=== PATIENT | female | born 1935 | race Caucasian/White ===

== ENCOUNTER → 2017-12-23 | Outpatient (CLI) | payer MEDICARE ==
[~2017-12-23] MED LIST: AMLODIPINE BESYL5 MG PO; KEFLEX500 MG PO; LEVOTHYROXINE100 MCG; LITHIUM8 MEQ/5 ML
--- NOTE | 2017-12-24 14:37 | Diagnostic Imaging Report ---
EXAMINATION: MRI of the lumbar spine without contrast HISTORY: Chronic low back pain radiating to lower extremities. COMPARISON: Lumbar spine x-ray on 02/28/2017. TECHNIQUE: Sagittal T1, T2, STIR; axial T2 and proton density. FINDINGS: It is assumed that there are 5 lumbar vertebrae. Curvature/Alignment: Normal lordosis. Vertebrae: No evidence of recent fracture, infection, or neoplasm. Well defined approximately 5 mm hypodense focus in the S1 vertebral body, likely corresponds to a bone island. Benign hemangioma is seen in the T11 and T12 vertebral bodies. 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 Paraspinal soft tissues: Partially visualized and not completely characterized heterogeneous signal intensity foci in both kidneys, probably cysts, some of them perhaps hemorrhagic, a renal ultrasound is recommended for further evaluation. Degenerative changes: L1-L2: Unremarkable. L2-L3: Unremarkable. L3-L4: Mild symmetric disc bulge, ligamenta flava thickening and facet arthrosis. Mild canal and foraminal narrowing. L4-L5: Advanced facet arthrosis results in grade 1 degenerative spondylolisthesis. Symmetric disc bulge, ligamenta flava thickening and facet processes. Severe spinal canal and moderate right foraminal stenoses. Mild bilateral facet joint effusion and bone marrow edema, likely degenerative synovitis. L5-S1: Minimal symmetric disc bulge and bilateral facet arthrosis. No stenoses IMPRESSION: 1. Grade 1 degenerative spondylolisthesis at L4-L5 is unchanged from lumbar spine x-ray dated 02/28/2017. 2. Severe degenerative spinal canal and moderate right foraminal stenosis at L4-L5 with circumferential narrowing of the thecal sac/cauda equina nerve roots. 3. Mild degenerative canal and foraminal narrowing at L3-4. 4. Partially visualized multiple heterogeneous signal intensity foci in the kidneys, a renal ultrasound is recommended if not previously evaluated. Signed by: Dr. Mckenzie Joseph M.D. on 12/24/2017 2:34 PM
== END ==
LOC: MRI 07:33
PROVIDERS: ATTEND Family Medicine
DX: M47.26 Other spondylosis with radiculopathy, lumbar region (principal)
CPT/HCPCS: 72148

== ENCOUNTER → 2018-01-04 | Outpatient (CLI) | payer MEDICARE ==
--- NOTE | 2018-01-04 11:24 | Diagnostic Imaging Report ---
PROCEDURE:US RETROPERITONEAL ( KIDNEY ). COMPARISON:None. INDICATIONS:RENAL CYSTS TECHNIQUE: Ramirez-scale and color sonographic images of the bilateral kidneys and bladder where obtained in transverse and longitudinal planes. FINDINGS: RIGHT KIDNEY: 9.7 cm, cortex 1.1 cm Cysts: Multiple right sided simple renal cysts are present: measuring up to 1.8 cm in the inferior pole medially; 1.2 cm in the inferior pole medially; and 0.8 cm in the mid pole laterally. Solid masses: A 1.3 cm heterogeneous hyperechoic lesion is present in the right mid pole kidney laterally. Hydronephrosis: None. Echogenicity: Coarse echogenic appearance with multiple punctate calcifications LEFT KIDNEY: 10.1 cm, cortex 1 cm Cysts: Simple left sided renal cyst measuring up to 1.1 cm in the inferior pole laterally. Solid masses: None. Hydronephrosis: None. Echogenicity: Coarse echogenic appearance with multiple punctate calcifications Bladder: Unremarkable. Bilateral ureteral jets are visualized. CONCLUSION: Solid 1.3 cm heterogeneously hyperechoic lesion in the right mid pole kidney is indeterminate. While an AML is possible, an RCC is also on the differential, and renal protocol CT is recommended for further evaluation. Coarse echogenic kidneys bilaterally, which may represent medical renal disease. Punctate calcifications throughout bilateral kidneys may represent parenchymal calcifications and potentially stones. Bilateral simple appearing renal cysts. Dictated by: GANGA SONG M.D. on 01/04/2018 at 11:19 Electronically approved by: GANGA SONG M.D. on 01/04/2018 at 11:19
== END ==
LOC: US 08:44
PROVIDERS: ATTEND Family Medicine
DX: N28.1 Cyst of kidney, acquired (principal)
CPT/HCPCS: 76770

== ENCOUNTER → 2018-01-09 | Outpatient (CLI) | payer MEDICARE ==
[~2018-01-09] MED LIST changes: +IOPAMIDOL 370 MG/ML 200 ML INFUS..BTL INJ ONE; +SODIUM CHLORIDE 0.9% 250ML 500 ML ONE; +SODIUM CHLORIDE 0.9% 50ML 50 ML ONE
[2018-01-09 12:31] LABS: CREATININE, SERUM 1.21 mg/dL (0.57-1.11)
--- NOTE | 2018-01-09 14:35 | Diagnostic Imaging Report ---
EXAM: CT Abdomen WITHOUT and WITH contrast INDICATION: \[id number] \S\1300 \S\RENAL MASS COMPARISON: Renal ultrasound dated 01/04/2018 TECHNIQUE: Abdomen was scanned utilizing a multidetector helical scanner from the lung base to the iliac crest before and after administration of IV contrast. Coronal and sagittal reformations were obtained. Routine protocol was performed. Scan was performed when during portal venous phase. IV CONTRAST: 150 mL of Omnipaque 300 ORAL CONTRAST: Water COMPLICATIONS: None RADIATION DOSE: Total DLP: ... mGy*cm Estimated effective dose: (DLP x 0.015 x size factor) mSv CTDIvol has been reviewed. It is below the limits set by the Radiation Protocol Committee (RPC). FINDINGS: LINES and TUBES: None. LOWER THORAX: Unremarkable HEPATOBILIARY: No hepatic mass. 1.1 cm left hepatic lobe cyst (series 7, image 26). Right upper lobe subcentimeter hypodensity (series 7, image 46) is too small to characterize. No biliary ductal dilation. GALLBLADDER: Small calcified gallstone. No wall thickening. SPLEEN: No splenomegaly. PANCREAS: No focal masses or ductal dilatation. ADRENALS: 1.1 cm left adrenal nodule with internal density of -3 Hounsfield units on precontrast images, representing an adenoma. No right adrenal nodule. KIDNEYS/URETERS: Kidneys enhance symmetrically. No hydronephrosis. No stones. Punctate bilateral cortical calcifications are seen. Numerous bilateral subcentimeter hypodensities which are too small to characterize but are statistically cysts. There is a hyperdense posterior left superior pole lesion on precontrast images, measuring 0.9 cm (series 3, image 40) which cannot be characterized with certainty due to size and indistinct visualization on postcontrast images. 1.5 cm left renal inferior pole cyst (series 4, image 41). There are also exophytic cysts, extending from anterior right renal inferior pole measuring 1.7 and 0.9 cm (series 7, image 78). 1 cm right midpole fat-containing lesion (series 3, image 57). Another posterior right inferior pole tiny fat-containing lesion (series 3, image 69). GI TRACT: Visualized bowel loops are unremarkable. No evidence of bowel obstruction. Partially visualized diverticulosis without evidence of diverticulitis in the visualized portion. LYMPH NODES: No lymphadenopathy. Nonspecific subcentimeter retroperitoneal lymph nodes. VESSELS: Moderate atherosclerotic disease of tortuous abdominal aorta. PERITONEUM / RETROPERITONEUM: No free air or fluid. BONES: Sacral sclerotic focus (series 7, image 114), likely a bone island. Indeterminate right posterior L2 vertebral body lucency (series 7, image 68). T12 and T11 vertebral body hemangiomas. Grade 1 retrolisthesis of L5 in relation to L4. SOFT TISSUES: Unremarkable. IMPRESSION: 1. Innumerable bilateral renal hypodensities which are too small to characterize, however statistically are most likely cysts. 2. Few larger lesions as described above, without evidence of enhancement, representing cysts. 3. 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 4. Cholelithiasis without evidence of cholecystitis. 5. 1.1 cm left adrenal adenoma. Signed by: Dr. Jaziel De La Rosa MD on 01/09/2018 2:32 PM
== END ==
LOC: CT 11:42
PROVIDERS: ATTEND Family Medicine
DX: N28.89 Other specified disorders of kidney and ureter (principal)
CPT/HCPCS: 36415; 74170; 82565; 84520; J7050; Q9967

== ENCOUNTER 2020-04-18 13:37 | Emergency (ER) | payer OTHER, MEDICARE ==
[~2020-04-18] VITALS: Ht 157.5 cm; Wt 63.5 kg
[~2020-04-18 13:37] MED LIST changes: -IOPAMIDOL 370 MG/ML 200 ML INFUS..BTL INJ ONE; -SODIUM CHLORIDE 0.9% 250ML 500 ML ONE; -SODIUM CHLORIDE 0.9% 50ML 50 ML ONE
--- OUTSIDE RECORDS SUMMARY | 2020-04-18 14:21 | XMS REPORT | Continuity of Care Document ---
Author Author [facility] Organization [facility] Address [address] [place] [address] Phone Unavailable Care Team Providers Care Carriage Rider Name Role Phone DOC ARITA Unavailable Problems This patient has no known problems. Allergies, Adverse Reactions, Alerts This patient has no known allergies or adverse reactions. Medications This patient has no known medications. Procedures This patient has no known procedures. Results Test Description Test Time Test Comments Results Result Comments Source SCR MAMM BILATERAL TIFFANIE CAD DIGITAL 2019-10-29 10:32:43 - SCR MAMM BILATERAL TIFFANIE CAD DIGITALBILATERAL DIGITAL SCREENING MAMMOGRAM 3D/2D WITH CAD: 10/26/2019CLINICAL: Asymptomatic. Digital breast tomosynthesis was performed in addition to routine CC and MLO views. Current mammographic images were evaluated by either a [employer] [facility] M-Vu or a [employer] ImageChecker CAD (computer aided detection system). Comparison is made to exams dated 10/24/2018 mammogram, 10/07 mammogram, and 09/28/2016 mammogram - [facility]. The tissue of both breasts is extremely dense, which lowers the sensitivity of mammography. There are benign vascular calcifications in both breasts. No suspicious mass, architectural distortion, malignant type calcification, or lymph node abnormality detected. Breast architecture is stable compared to prior exams.IMPRESSION: BENIGNThere is no mammographic evidence of malignancy. Resume annual screening mammography in one year. Kayleen Mccormack M.D. dm/penrad:10/29/2019 10:32:43 Promotion Specialist: Bina NUGENT, [facility] sent: BIRADS 1-2 Normal Mammogram BI-RADS: 2 Benign SCR MAMM BILATERAL TIFFANIE CAD DIGITAL 2018-10-24 12:13:36 - SCR MAMM BILATERAL TIFFANIE CAD DIGITALBILATERAL DIGITAL SCREENING MAMMOGRAM 3D/2D WITH CAD: 10/24/2018CLINICAL: Asymptomatic. Digital breast tomosynthesis was performed in addition to routine CC and MLO views. Current mammographic images were evaluated by either a [employer] [facility] M-Vu or a [employer] ImageChecker CAD (computer aided detection system). Comparison is made to exams dated 10/07/2017 mammogram, 09/28 mammogram, and 08/26/2015 mammogram - [facility] The tissue of both breasts is extremely dense, which lowers the sensitivity of mammography. There are benign vascular calcifications in both breasts. No suspicious mass, architectural distortion, malignant type calcification, or lymph node abnormality detected. Breast architecture is stable compared to prior exams.IMPRESSION: BENIGNThere is no mammographic evidence of malignancy. Resume annual screening mammography in one year. Kayleen Mccormack M.D. dm/penrad:10/24/2018 12:13:36 Promotion Specialist: Merry NUGENT, [facility] sent: BIRADS 1-2 Normal Mammogram BI-RADS: [address] ABDOMEN WOW 2018-01-09 13:31:00 [place] [address] Patient Name: NEELA CROW MR #: [id number] : 1935 Age/Sex: 83/F Req #: [id number] [facility] Physician: Ordered by: DOC ARITA MD Report #: [id number] Location: CT Room/Bed: Procedure: [id number] CT/CT ABDOMEN WOW Exam Date: 01/09/18 Exam Time: 1300 REPORT STATUS: Signed EXAM: CT Abdomen WITHOUT and WITH contrast INDICATION: COMPARISON: Renal ultrasound dated 01/04/2018 TECHNIQUE: Abdomen was scanned utilizing a multidetector helical scanner from the lung base to the iliac crest before and after administration of IV contrast. Coronal and sagittal reformations were obtained. Routine protocol was performed. Scan was performed when during portal venous phase. IV CONTRAST: 150 mL of Omnipaque 300 ORAL CONTRAST: Water COMPLICATIONS: None RADIATION DOSE: Total DLP: ... mGy*cm Estimated effective dose: (DLP x 0.015 x size factor) mSv CTDIvol has been reviewed. It is below the limits set by the Radiation Protocol Committee (RPC). FINDINGS: LINES and TUBES: None. LOWER THORAX: Unremarkable HEPATOBILIARY: No hepatic mass. 1.1 cm left hepatic lobe cyst (series 7, image 26). Right upper lobe subcentimeter hypodensity (series 7, image 46) is too small to characterize. No biliary ductal dilation. GALLBLADDER: Small calcified gallstone. No wall thickening. SPLEEN: No splenomegaly. PANCREAS: No focal masses or ductal dilatation. ADRENALS: 1.1 cm left adrenal nodule with internal density of -3 Hounsfield units on precontrast images, representing an adenoma. No right adrenal nodule. KIDNEYS/URETERS: Kidneys enhance symmetrically. No hydronephrosis. No sto mimi. Punctate bilateral cortical calcifications are seen. Numerous bilateral subcentimeter hypodensities which are too small to characterize but are statistically cysts. There is a hyperdense posterior left superior pole lesion on precontrast images, measuring 0.9 cm (series 3, image 40) which cannot be characterized with certainty due to size and indistinct visualization on postcontrast images. 1.5 cm left renal inferior pole cyst (series 4, image 41). There are also exophytic cysts, extending from anterior right renal inferior pole measuring 1.7 and 0.9 cm (series 7, image 78). 1 cm right midpole fat-containing lesion (series 3, image 57). Another posterior right inferior pole tiny fat-containing lesion (series 3, image 69). GI TRACT: Visualized bowel loops are unremarkable. No evidence of bowel obstruction. Partially visualized diverticulosis without evidence of diverticulitis in the visualized portion. LYMPH NODES: No lymphadenopathy. Nonspecific subcentimeter retroperitoneal lymph nodes. VESSELS: Moderate atherosclerotic disease of tortuous abdominal aorta. PERITONEUM / RETROPERITONEUM: No free air or fluid. BONES: Sacral sclerotic focus (series 7, image 114), likely a bone island. Indeterminate right posterior L2 vertebral body lucency (series 7, image 68). T12 and T11 vertebral body hemangiomas. Grade 1 retrolisthesis of L5 in relation to L4. SOFT TISSUES: Unremarkable. IMPRESSION: 1. Innumerable bilateral renal hypodensities which are too small to characterize, however statistically are most likely cysts. 2. Few larger lesions as described above, without evidence of enhancement, representing cysts. 3. Two fat- containing lesions in the right kidney, representing angiomyolipomas. 4. Cholelithiasis without evidence of cholecystitis. 5. 1.1 cm left adrenal adenoma. Signed by: Dr. Jaziel Kirkpatrick MD on 01/09/2018 2:32 PM Dictated By: JAZIEL KIRKPATRICK MD 143 Transcribed By: HANY on 01/09/18 143 COPY TO: DOC ARIAT MD US RENAL RETROPERITONEAL COMP 2018-01-04 11:19:00 [place] [address] Patient Name: NEELA CROW MR #: [id number] : 1935 Age/Sex: 83/F Req #: [id number] Adm Physician: Ordered by: DOC ARITA MD Report #: [id number] Location: Room/Bed: Procedure: [id number] US/US RENAL RETROPERITONEAL COMP Exam Date: Exam Time: REPORT STATUS: Signed PROCEDURE: US RETROPERITONEAL ( KIDNEY ). COMPARISON: None. INDICATIONS: RENAL CYSTS TECHNIQUE: Ramirez-scale and color sonographic images of the bilateral kidneys and bladder where obtained in transverse and longitudinal planes. FINDINGS: RIGHT KIDNEY: 9.7 cm, cortex 1.1 cm Cysts: Multiple right sided simple renal cysts are present: measuring up to 1.8 cm in the inferior pole medially; 1.2 cm in the inferior pole medially; and 0.8 cm in the mid pole laterally. Solid masses: A 1.3 cm heterogeneous hyperechoic lesion is present in the right mid pole kidney laterally. Hydronephrosis: None. Echogenicity: Coarse echogenic appearance with multiple punctate calcifications LEFT KIDNEY: 10.1 cm, cortex 1 cm Cysts: Simple left sided renal cyst measuring up to 1.1 cm in the inferior pole laterally. Solid masses: None. Hydronephrosis: None. Echogenicity: Coarse echogenic appearance with multiple punctate calcifications Bladder: Unremarkable. Bilateral ureteral jets are visualized. CONCLUSION: Solid 1.3 cm heterogeneously hyperechoic lesion in the right mid pole kidney is indeterminate. While an AML is possible, an RCC is also on the differential, and renal protocol CT is recommended for further evaluation. Coarse echogenic kidneys bilaterally, which may represent medical renal disease. Punctate calcifications throughout bilateral kidneys may represent parenchymal calcifications and potentially stones. Bilateral simple appearing renal cysts. Dictated by: GANGA SONG M.D. on 01/04/2018 at 11:19 Electronically approved by: GANGA SONG M.D. on 01/04/2018 at 11:19 Dictated By: GANGA SONG MD 1119 Transcribed By: MONICA on 01/04/18 1119 COPY TO: DOC ARITA MD MRI SPINE LUMBAR WO 2017-12-24 14:29:00 [place] [address] Patient Name: NEELA CROW MR #: [id number] : 1935 Age/Sex: 82/F Req #: [id number] Adm Physician: Ordered by: DOC ARITA MD Report #: [id number] Location: MRI Room/Bed: Procedure: [id number] MRI/MRI SPINE LUMBAR WO Exam Date: Exam Time: REPORT STATUS: Signed EXAMINATION: MRI of the lumbar spine without contrast HISTORY: Chronic low back pain radiating to lower extremities. COMPARISON: Lumbar spine x-ray on 02/28/2017. TECHNIQUE: Sagittal T1, T2, STIR; axial T2 and proton density. FINDINGS: It is assumed that there are 5 lumbar vertebrae. Curvature/Alignment: Normal lordosis. Vertebrae: No evidence of recent fracture, infection, or neoplasm. Well defined approximately 5 mm hypodense focus in the S1 vertebral body, likely corresponds to a bone island. Benign hemangioma is seen in the T11 and T12 vertebral bodies. 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 Paraspinal soft tissues: Partially visualized and not completely characterized heterogeneous signal intensity foci in both kidneys, probably cysts, some of them perhaps hemorrhagic, a renal ultrasound is recommended for further evaluation. Degenerative changes: L1-L2: Unremarkable. L2-L3: Unremarkable. L3-L4: Mild symmetric disc bulge, ligamenta flava thickening and facet arthrosis. Mild canal and foraminal narrowing. L4-L5: Advanced facet arthrosis results in grade 1 degenerative spondylolisthesis. Symmetric disc bulge, ligamenta flava thickening and facet processes. Severe spinal canal and moderate right foraminal stenoses. Mild bilateral facet joint effusion and bone marrow edema, likely degenerative synovitis. L5-S1: Minimal symmetric disc bulge and bilateral facet arthrosis. No stenoses IMPRESSION: 1. Grade 1 degenerative spondylolisthesis at L4-L5 is unchanged from lumbar spine x-ray dated 02/28/2017. 2. Severe degenerative spinal canal and moderate right foraminal stenosis at L4-L5 with circumferential narrowing of the thecal sac/cauda equina nerve roots. 3. Mild degenerative canal and foraminal narrowing at L3-4. 4. Partially visualized multiple heterogeneous signal intensity foci in the kidneys, a renal ultrasound is recommended if not previously evaluated. Signed by: Dr. Nicolasa Joseph M.D. on 12/24/2017 2:34 PM Dictated By: NICOLASA JOSEPH MD 33 Transcribed By: HANY on 12/24/171433 COPY TO: DOC ARITA MD SP LUMBAR, COMPLETE MIN 4VW [place] [address] Patient Name: NEELA CROW MR #: [id number] : 1935 Age/Sex: 82/F Req #: [id number] [facility] Physician: Ordered by: DOC ARITA MD Report #: [id number] Location: [facility] Room/Bed: Procedure: [id number] DX/SP LUMBAR, COMPLETE MIN 4VW Exam Date: 02/28/17 Exam Time: 1250 REPORT STATUS: Signed PROCEDURE: L-SPINE COMPLETE COMPARISON: None. INDICATIONS: PAIN TO BOTH BUTTOCKS, AND RUNS DOWN BOTH LEGS FINDINGS: There is Grade I anterior listhesis of L4 on L5. No associated pars defect is identified. Facet arthrosis at this level is present. The lumbar spine is in anatomic alignment without evidence of fracture or spondylolysis. Vertebral body heights and disc spaces are maintained. The paraspinal soft tissues are normal. There is diffuse vascular calcification. CONCLUSION: Anterior listhesis of L4 on L5. Ron Jean-Baptiste D.O. Dictated by: Ron Jean-Baptiste D.O. on 02/28/2017 at 14:23 Electronically approved by: Ron Jean-Baptiste D.O. on 02/28/2017 at 14:23 Dictated By: RON JEAN-BAPTISTE DO 22 Transcribed By: MONICA on 02/28/171422 COPY TO: DOC ARITA MD HIPS BILAT TWO VWS(+/- PELVIS) [place] [address] Patient Name: NEELA CROW MR #: [id number] : 1935 Age/Sex: 82/F Req #: [id number] Adm Physician: Ordered by: DOC ARITA MD Report #: [id number] Location: [facility] Room/Bed: Procedure: [id number] DX/HIPS BILAT TWO VWS(+/- PELVIS) Exam Date: Exam Time: REPORT STATUS: Signed PROCEDURE: HIPS BILAT TWO VWS(+/- PELVIS) INDICATION: Pain COMPARISON: None. FINDINGS: There is mild symmetric bilateral joint space narrowing. No fracture or dislocation. Bones are well mineralized. No lytic or blastic process. Pelvic phlebolith is present on the left. CONCLUSION: Mild joint space narrowing. Ron Jean-Baptiste D.O. Dictated by: Ron Jean-Baptiste D.O. on 02/28/2017 at 14:29 Electronically approved by: Ron Jean-Baptiste D.O. on 02/28/2017 at 14:29 Dictated By: RON JEAN-BAPTISTE DO 1429 Transcribed By: MONICA on 02/28/171428 COPY TO: DOC ARITA MD
[2020-04-18 14:23] LABS: BASOPHILS % 0.4 % (0.0-1.0); EOSINOPHILS # (AUTO) 0.3 (0.0-0.4); EOSINOPHILS % 2.3 % (0.0-6.0); HEMATOCRIT 32.2 % (34.2-44.1); HEMOGLOBIN 10.2 g/dL (12.0-16.0); LYMPHOCYTES # (AUTO) 1.7 (1.0-3.2); LYMPHOCYTES % 15.4 % (18.0-39.1); MEAN CORPUSCULAR HEMOGLOBIN 30.5 pg (28-32); MEAN CORPUSCULAR HGB CONC 31.7 g/dL (31-35); MEAN CORPUSCULAR VOLUME 96.4 fL (81-99); MONOCYTES # (AUTO) 1.1 (0.2-0.8); NEUTROPHILS % 71.4 % (38.7-80.0); PLATELET COUNT 307 x10e3/uL (140-360); RED BLOOD COUNT 3.34 x10e6/uL (3.6-5.1)
--- NOTE | 2020-04-18 14:32 | Emergency Department Note ---
History of Present Illnes History of Present Illness Chief Complaint: Extremity Trauma/Pain History of Present Illness This is a 85 year old female Chief Complaint Comment pt came in via POV for c/o pain to the left leg, pt states that she fell on Tuesday and had XRay's done on Tuesday which revealed no fracture, daughter noticed pt's left leg started bruising all the way down to her ankle, denies taking any blood thin ners, pain on weight bearing only, full ROM to LLE. Historian: Patient Arrival Mode: Car Community Relations Representative Required: No Onset (how long ago): day(s) (5) Location: L leg Quality: Bruising Radiation: Reports non-radiation Severity: moderate Onset quality: gradual Duration (how long): day(s) Timing of current episode: constant Progression: worsening Chronicity: new Context: Denies recent illness, Denies recent surgery Relieving factors: none Exacerbating factors: none Associated symptoms: Reports denies other symptoms Treatments prior to arrival: none Past Medical/Family History Physician Review I have reviewed the patient's past medical and family history. Any updates have been documented here. Past Medical History Recent Fever: No Clinical Suspicion of Infectio: No New/Unexplained Change in Ment: No Past Medical History: Hypertension, Diabetes Other Surgery: Tumor removed from breast Other Last Tetanus: Not up date Any Pre-Existing Lines (PICC,: No Review of Systems Review of Systems Constitutional: Reports no symptoms EENTM: Reports no symptoms Cardiovascular: Reports no symptoms Respiratory: Reports no symptoms Gastrointestinal: Reports no symptoms Genitourinary: Reports no symptoms Musculoskeletal: Reports as per HPI Integumentary: Reports no symptoms Neurological: Reports no symptoms Psychological: Reports no symptoms Endocrine: Reports no symptoms Hematological/Lymphatic: Reports no symptoms Physical Exam Related Data Allergies: Coded Allergies: Penicillins (Verified Allergy, Mild, RASH, 03/25/15) hydrochlorothiazide (Verified Allergy, Mild, 03/25/15) lisinopril (Verified Allergy, Mild, COUGH, 03/25/15) losartan (Verified Allergy, Mild, 03/25/15) nickel (Verified Allergy, Mild, RASH, 07/01/10) azithromycin (Verified Allergy, Unknown, 04/18/20) gemfibrozil (Verified Allergy, Unknown, 04/18/20) Triage Vital Signs Vital Signs Date Time Temp Pulse Resp B/P (MAP) Pulse Ox O2 Delivery O2 Flow Rate FiO2 04/18/20 13:46 98.3 90 20 142/72 98 Room Air Vital signs reviewed: Yes Physical Exam CONSTITUTIONAL Constitutional: Present well-developed, Present well-nourished HENT HENT: Present normocephalic, Present atraumatic, Present oropharynx clear/moist, Present nose normal HENT L/R: Present left ext ear normal, Present right ext ear normal EYES Eyes: Reports PERRL, Reports conjunctivae normal NECK Neck: Present ROM normal PULMONARY Pulmonary: Present effort normal, Present breath sounds normal CARDIOVASCULAR Cardiovascular: Present regular rhythm, Present heart sounds normal, Present capillary refill normal, Present normal rate GASTROINTESTINAL Abdominal: Present soft, Present nontender, Present bowel sounds normal GENITOURINARY Genitourinary: Present exam deferred SKIN Skin: Present warm, Present dry MUSCULOSKELETAL Musculoskeletal: Present ROM normal, Present other (Extensive bruising to L leg along posterior aspect) NEUROLOGICAL Neurological: Present alert, Present oriented x 3, Present no gross motor or sensory deficits PSYCHOLOGICAL Psychological: Present mood/affect normal, Present judgement normal Results Laboratory Result Diagram: 04/18/20 1357 Laboratory Laboratory Tests Test 04/18/20 13:57 White Blood Count 11.25 x10e3/uL (4.8-10.8) Red Blood Count 3.34 x10e6/uL (3.6-5.1) Hemoglobin 10.2 g/dL (12.0-16.0) Hematocrit 32.2 % (34.2-44.1) Mean Corpuscular Volume 96.4 fL (81-99) Mean Corpuscular Hemoglobin 30.5 pg (28-32) Mean Corpuscular Hemoglobin Concent 31.7 g/dL (31-35) Red Cell Distribution Width 13.0 % (11.7-14.4) Platelet Count 307 x10e3/uL (140-360) Neutrophils (%) (Auto) 71.4 % (38.7-80.0) Lymphocytes (%) (Auto) 15.4 % (18.0-39.1) Monocytes (%) (Auto) 10.0 % (4.4-11.3) Eosinophils (%) (Auto) 2.3 % (0.0-6.0) Basophils (%) (Auto) 0.4 % (0.0-1.0) Neutrophils # (Auto) 8.0 (2.1-6.9) Lymphocytes # (Auto) 1.7 (1.0-3.2) Monocytes # (Auto) 1.1 (0.2-0.8) Eosinophils # (Auto) 0.3 (0.0-0.4) Basophils # (Auto) 0.0 (0.0-0.1) Absolute Immature Granulocyte (auto 0.06 x10e3/uL (0-0.1) Lab results reviewed: Yes Imaging Imaging results reviewed: Yes Assessment & Plan Medical Decision Making MDM 85-year-old female presents for bruising to the left leg after a fall 5 days ago. Examination shows extensive bruising on the posterior aspect of the leg with some mild lower extremity swelling. We'll order DVT ultrasound and coagulation studies. DVT US neg. Diagnosis favors dependent bruising. Doubt emergent process at this time. I discussed results patient as well as expected disease time course and management. They will follow up with their primary care provider or return to the emergency department for new or worsening symptoms. Patient's appropriate for discharge. Assessment & Plan Final Impression: (1) Contusion, multiple sites Depart Disposition: HOME, SELF-CARE Last Vital Signs Date Time Temp Pulse Resp B/P (MAP) Pulse Ox O2 Delivery O2 Flow Rate FiO2 04/18/20 13:46 98.3 90 20 142/72 98 Room Air Home Meds Reported Medications Cephalexin Monohydrate (KEFLEX) 500 Mg Capsule, 500 MG PO TID 03/25/15 Amlodipine Besylate (AMLODIPINE BESYLATE) 5 Mg Tablet, 5 MG PO DAILY, #30 TAB 03/18/14 Levothyroxine Sodium (LEVOTHYROXINE SODIUM) 100 Mcg Tablet 03/18/14 Iyanbito Citrate (LITHIUM) 8 Meq/5 Ml Solution, 300 MG PRN for DRY EYE, #1 03/18/14 EDDIE NORMAN MD Apr 18, 2020 14:32
[2020-04-18 14:36] LABS: INR 0.94
[2020-04-18 14:37] LABS: PARTIAL THROMBOPLASTIN TIME 23.9 seconds (23.8-35.5)
[2020-04-18 14:43] LABS: ALBUMIN 3.7 g/dL (3.5-5.0); ALBUMIN/GLOBULIN RATIO 1.2 (0.8-2.0); ANION GAP 16.4 mmol/L (8-16); CALCIUM 9.2 mg/dL (8.4-10.2); CREATININE, SERUM 1.37 mg/dL (0.57-1.11); POTASSIUM 4.4 mmol/L (3.5-5.1)
[2020-04-18 17:05] VITALS: BP 117/68
== END 2020-04-18 17:12 | disposition home or self-care (01) ==
LOC: ER 13:50
DX: M79.89 Other specified soft tissue disorders (principal); S80.12XD Contusion of left lower leg, subsequent encounter; I10 Essential (primary) hypertension; E11.9 Type 2 diabetes mellitus without complications
CPT/HCPCS: 36415; 80053; 85025; 85610; 85730; 93971; 99284

== ENCOUNTER → 2020-05-22 | Outpatient (RCR) | payer MEDICARE | LOC: PT 05-02 09:53 | PROVIDERS: ATTEND Internal Medicine | DX: R29.6 Repeated falls (principal) ==

== ENCOUNTER 2020-05-30 09:52 | Outpatient (RCR) | payer MEDICARE | END 2020-06-22 | LOC: PT 09:52 | PROVIDERS: ATTEND Internal Medicine | DX: R26.2 Difficulty in walking, not elsewhere classified (principal); M62.81 Muscle weakness (generalized); Z91.81 History of falling | CPT/HCPCS: 97139 ==

== ENCOUNTER 2021-05-30 20:21 | Inpatient (IN) | payer MEDICARE ==
[~2021-05-30] VITALS: Ht 157.5 cm; Wt 63.5 kg
[2021-05-30] MEDS ORDERED: ACETAMINOPHEN 325 MG TAB PO ONE (20:30)
[2021-05-30] MEDS ORDERED: CEFTRIAXONE 2 GM in SODIUM CHLORIDE 0.9% 100 ML IV ONE (20:30)
[2021-05-30] MEDS ORDERED: SODIUM CHLORIDE 0.9% 1000ML 1,000 ML IV ONE (20:30)
[2021-05-30 20:45] LABS: BASOPHILS % 0.4 % (0.0-1.0); EOSINOPHILS # (AUTO) 0.1 (0.0-0.4); EOSINOPHILS % 0.9 % (0.0-6.0); HEMATOCRIT 40.3 % (34.2-44.1); HEMOGLOBIN 12.5 g/dL (12.0-16.0); LYMPHOCYTES # (AUTO) 0.6 (1.0-3.2); LYMPHOCYTES % 5.7 % (18.0-39.1); MEAN CORPUSCULAR HEMOGLOBIN 31.1 pg (28-32); MEAN CORPUSCULAR VOLUME 100.2 fL (81-99); MONOCYTES # (AUTO) 0.9 (0.2-0.8); MONOCYTES % 7.8 % (4.4-11.3); NEUTROPHILS # (AUTO) 9.3 (2.1-6.9); NEUTROPHILS % 84.4 % (38.7-80.0); PLATELET COUNT 245 x10e3/uL (140-360); RED BLOOD COUNT 4.02 x10e6/uL (3.6-5.1); RED CELL DISTRIBUTION WIDTH 12.5 % (11.7-14.4)
[2021-05-30 20:59] LABS: ALBUMIN 3.7 g/dL (3.5-5.0); ANION GAP 13.7 mmol/L (8-16); CALCIUM 9.9 mg/dL (8.4-10.2); CREATININE, SERUM 1.81 mg/dL (0.57-1.11); POTASSIUM 4.7 mmol/L (3.5-5.1)
[2021-05-30 21:00] LABS: ALBUMIN/GLOBULIN RATIO 0.9 (0.8-2.0); CLARITY,URINE HAZY (CLEAR); COLOR,URINE YELLOW (YELLOW); KETONES,URINE NEGATIVE (NEGATIVE); LEUKOCYTE ESTERASE ,URINE LARGE (NEGATIVE); NITRITE,URINE POSITIVE (NEGATIVE); PROTEIN,URINE DIPSTICK 2+ (NEGATIVE); URINE UROBILINOGEN 0.2 mg/dL (0.2 - 1)
[2021-05-30 21:01] LABS: BACTERIA,URINE MANY /HPF; EPITHELIAL CELLS,URINE MANY /LPF; RENAL EPITHELIAL CELLS,URINE FEW; WBC,URINE (MAN) >50 /HPF (0-5)
[2021-05-30 21:06] LABS: CREATINE KINASE MB 0.5 ng/mL (0-5.0)
[2021-05-30] MEDS ORDERED: IBUPROFEN 600 MG TAB PO STA (21:18)
[2021-05-30] MEDS ORDERED: ACETAMINOPHEN 325 MG TAB PO PRN (22:00)
[2021-05-30] MEDS: SODIUM CHLORIDE 0.9% 1000ML 1,000 ML IV SCH (22:11)
[2021-05-30 22:20] VITALS: BP 119/59
[2021-05-30] MEDS ORDERED: MAGNESIUM250 MG (22:45)
[2021-05-30] MEDS ORDERED: LOSARTAN POTASS50 MG PO (22:45)
[2021-05-30] MEDS ORDERED: PRAVASTATIN SOD10 MG PO (22:45)
[2021-05-30 22:51] VITALS: BP 119/59
[2021-05-30 23:26] VITALS: BP 119/59
[2021-05-30] MEDS ORDERED: MELATONIN (23:59)
[2021-05-30] MEDS ORDERED: ARICEPT5 MG PO (23:59)
[2021-05-30] MEDS ORDERED: B12 (23:59)
[2021-05-30] MEDS ORDERED: VITAMIN D3 PO (23:59)
[2021-05-31] VITALS (8 sets, daily range): BP systolic 102–166; BP diastolic 59–80
[2021-05-31 05:54] LABS: BASOPHILS % 0.4 % (0.0-1.0); EOSINOPHILS # (AUTO) 0.1 (0.0-0.4); EOSINOPHILS % 0.5 % (0.0-6.0); HEMATOCRIT 34.1 % (34.2-44.1); HEMOGLOBIN 10.8 g/dL (12.0-16.0); LYMPHOCYTES # (AUTO) 0.6 (1.0-3.2); LYMPHOCYTES % 6.2 % (18.0-39.1); MEAN CORPUSCULAR HEMOGLOBIN 31.1 pg (28-32); MEAN CORPUSCULAR HGB CONC 31.7 g/dL (31-35); MEAN CORPUSCULAR VOLUME 98.3 fL (81-99); MONOCYTES # (AUTO) 1.3 (0.2-0.8); MONOCYTES % 13.1 % (4.4-11.3); NEUTROPHILS # (AUTO) 7.6 (2.1-6.9); NEUTROPHILS % 79.2 % (38.7-80.0); PLATELET COUNT 204 x10e3/uL (140-360); RED BLOOD COUNT 3.47 x10e6/uL (3.6-5.1); RED CELL DISTRIBUTION WIDTH 12.5 % (11.7-14.4)
[2021-05-31 06:31] LABS: ALBUMIN 2.8 g/dL (3.5-5.0); ALBUMIN/GLOBULIN RATIO 0.9 (0.8-2.0); ANION GAP 10.8 mmol/L (8-16); CALCIUM 10.5 mg/dL (8.4-10.2); CREATININE, SERUM 1.44 mg/dL (0.57-1.11); POTASSIUM 3.8 mmol/L (3.5-5.1)
[2021-05-31 06:47] LABS: CREATINE KINASE MB 0.8 ng/mL (0-5.0)
[2021-05-31] MEDS: SODIUM CHLORIDE 0.9% 1000ML 1,000 ML IV SCH ×3 (06:57→22:29)
[2021-05-31] MEDS: CEFTRIAXONE 2 GM in SODIUM CHLORIDE 0.9% 100 ML IV SCH (09:34)
[2021-05-31] MEDS: LEVOTHYROXINE SODIUM 25 MCG TABLET PO SCH (13:37)
[2021-05-31] MEDS ORDERED: DONEPEZIL HCL 5 MG TAB PO SCH (21:00)
[2021-06-01 00:53] VITALS: BP 160/80
[2021-06-01 01:13] VITALS: BP 155/74
[2021-06-01 05:26] LABS: ALBUMIN/GLOBULIN RATIO 0.9 (0.8-2.0); ANION GAP 12.7 mmol/L (8-16); CALCIUM 9.2 mg/dL (8.4-10.2); CREATININE, SERUM 1.46 mg/dL (0.57-1.11); POTASSIUM 3.7 mmol/L (3.5-5.1)
[2021-06-01] MEDS: LEVOTHYROXINE SODIUM 25 MCG TABLET PO SCH (05:26)
[2021-06-01 05:27] LABS: BASOPHILS # (AUTO) 0.1 (0.0-0.1); BASOPHILS % 0.5 % (0.0-1.0); EOSINOPHILS # (AUTO) 0.1 (0.0-0.4); EOSINOPHILS % 0.7 % (0.0-6.0); HEMATOCRIT 35.2 % (34.2-44.1); HEMOGLOBIN 10.9 g/dL (12.0-16.0); LYMPHOCYTES # (AUTO) 0.7 (1.0-3.2); LYMPHOCYTES % 7.1 % (18.0-39.1); MEAN CORPUSCULAR HEMOGLOBIN 31.2 pg (28-32); MEAN CORPUSCULAR VOLUME 100.9 fL (81-99); MONOCYTES # (AUTO) 1.5 (0.2-0.8); MONOCYTES % 15.8 % (4.4-11.3); NEUTROPHILS # (AUTO) 7.3 (2.1-6.9); NEUTROPHILS % 75.4 % (38.7-80.0); PLATELET COUNT 215 x10e3/uL (140-360); RED BLOOD COUNT 3.49 x10e6/uL (3.6-5.1); RED CELL DISTRIBUTION WIDTH 12.3 % (11.7-14.4)
[2021-06-01] MEDS: SODIUM CHLORIDE 0.9% 1000ML 1,000 ML IV SCH (05:33)
[2021-06-01 05:44] VITALS: BP 130/73
[2021-06-01 07:49] VITALS: BP 147/70
[2021-06-01 07:58] VITALS: BP 147/70
[2021-06-01] MEDS ORDERED: LOSARTAN POTASSIUM 25 MG TAB PO SCH (09:00)
[2021-06-01] MEDS ORDERED: CHOLECALCIFEROL 1,000 UNIT TAB PO SCH (09:00)
[2021-06-01] MEDS ORDERED: AMLODIPINE BESYLATE 5 MG TAB PO SCH (09:00)
[2021-06-01] MEDS: CEFTRIAXONE 2 GM in SODIUM CHLORIDE 0.9% 100 ML IV SCH (09:22)
[2021-06-01] MEDS ORDERED: ALBUTEROL/IPRATROPIUM 3 ML NEB NEB ONE (09:25)
[2021-06-01] MEDS ORDERED: LEVOFLOXACIN 500MG/D5W 100ML 100 ML IV ONE (09:30)
[2021-06-01] MEDS ORDERED: LEVOFLOXACIN250 MG PO (11:27)
[2021-06-01] MEDS ORDERED: VENTOLIN HFA18 GM INH (11:28)
[2021-06-01 11:37] VITALS: BP 141/78
== END 2021-06-01 13:45 | disposition home or self-care (01) | DRG 177 ==
LOC: ER 20:25 → ERHOLD 21:53 → MED/SURG2 22:18
PROVIDERS: ADMIT Internal Medicine; ATTEND Internal Medicine
DX: J15.6 Pneumonia due to other Gram-negative bacteria (principal); I50.23 Acute on chronic systolic (congestive) heart failure; N39.0 Urinary tract infection, site not specified; I13.0 Hypertensive heart and chronic kidney disease with heart failure and stage 1 through stage 4 chronic kidney disease, or unspecified chronic kidney disease; N17.9 Acute kidney failure, unspecified; N18.30 Chronic kidney disease, stage 3 unspecified; F03.90 Unspecified dementia, unspecified severity, without behavioral disturbance, psychotic disturbance, mood disturbance, and anxiety; Z20.822 Contact with and (suspected) exposure to COVID-19; G47.00 Insomnia, unspecified; Z79.899 Other long term (current) drug therapy
CPT/HCPCS: 36415; 71045; 80053; 81001; 82550; 82553; 83605; 83880; 84484; 85025; 87040; 87086; 87186; 93005; 94640; 94799; 99284; J0696; J1956; J7030; J7050; U0002

== ENCOUNTER 2022-07-04 13:18 | Emergency (ER) | payer MEDICARE ==
[~2022-07-04] VITALS: Ht 157.5 cm; Wt 63.5 kg
[~2022-07-04 13:18] MED LIST changes: +ARICEPT5 MG PO; +B12; +LEVOFLOXACIN250 MG PO; +LOSARTAN POTASS50 MG PO; +MAGNESIUM250 MG; +MELATONIN; +PRAVASTATIN SOD10 MG PO; +VENTOLIN HFA18 GM INH; +VITAMIN D3 PO
[2022-07-04] MEDS ORDERED: GOLYTELY SOLU4000 M1 PO (14:05)
== END 2022-07-04 14:20 | disposition home or self-care (01) ==
LOC: ER 13:27
DX: K59.00 Constipation, unspecified (principal); I10 Essential (primary) hypertension; F03.90 Unspecified dementia, unspecified severity, without behavioral disturbance, psychotic disturbance, mood disturbance, and anxiety
CPT/HCPCS: 74018; 99284